=== PATIENT | male | born 1965 | race African-American/Black ===

== ENCOUNTER 2019-03-19 22:07 | Emergency (ER) | payer OTHER ==
[~2019-03-19] VITALS: Ht 175.3 cm; Wt 111.0 kg
[2019-03-19] MEDS ORDERED: CLONIDINE 0.2MG TABLET PO ONE (23:15)
[2019-03-20 00:02] VITALS: BP 203/95
== END 2019-03-20 00:03 | disposition home or self-care (01) ==
LOC: ER 22:07
DX: I10 Essential (primary) hypertension (principal); E11.65 Type 2 diabetes mellitus with hyperglycemia; F12.10 Cannabis abuse, uncomplicated; F17.200 Nicotine dependence, unspecified, uncomplicated; Z89.422 Acquired absence of other left toe(s)
CPT/HCPCS: 82962; 99283